=== PATIENT | female | born 1935 | race Caucasian/White ===

== ENCOUNTER 2020-12-04 14:12 | Inpatient (IN) | payer MEDICARE ==
[~2020-12-04] VITALS: Ht 167.6 cm; Wt 78.6 kg
--- NOTE | ~2020-12-04 | EMS ---
[facility] [address] [place] [address] EMS Patient Care Report Name: PETEY VEGA Room: [place] [address] ADM IN [facility]#: [id number] Admission: 12/04/20 Attend Phys: Samy Arias Discharge: Date of : 35 Report #: [id number] THIS REPORT FOR: //name// Report Transmitted: 12/04/2020 17:49 EMS Care Summary [facility] [place] Incident [id number] @ 12/04/2020 13:22 Incident Location [address] [place] [address] Patient Barbie Sanon Female, 85 Years 1935 Patient Address [address] [place] [address] Patient History Anxiety disorder, unspecified,Hypothyroidism, unspecified,Hyperlipidemia,Atrial Fibrillation,Presence of artificial hip joint, Patient Allergies , Patient Medications Fenofibrate, Tamsulosin, Lisinopril, , Xarelto, Senna Lax, Memantine, , Lexapro, Tramadol, Chief Complaint Weakness Disposition Transported No Lights/[place] Dispatch Reason Heart Problems/AICD Transported To [facility] Narrative [facility] DISPATCHED TO [facility] ROOM 106 FOR AN 85 YEAR OLD FEMALE WITH AN ELEVATED HEART RATE.I STARTING LOCATION IS [facility] [address] [place] [address] EMS Patient Care Report Name: PETEY VEGA Room: [address] IN [facility]#: [id number] Admission: 12/04/20 Attend Phys: Samy Arias Discharge: Date of : 35 Report #: [id number] CENTER ED. 319 ARRIVES ON SCENE WITHOUT INCIDENT. PATIENT (BARBIE) FOUND STANDING UPRIGHT IN APARTMENT BATHROOM WITH HER WALKER. FACILITY NURSE IS STANDING BY IN APARTMENT WELL. NURSE STATES THAT BARBIE HAS BEEN COMPLAINING OF "NOT FEELING WELL" FOR MULTIPLE DAYS. ON ASSESSING VITAL SIGNS, NURSING STAFF FOUND BARBIE TO BE HYPERTENSIVE AT 160/94 WITH HEART RATE BETWEEN 158-165 BEATS PER MINUTE. BARBIE MOVED INTO FACILITY MONDAY AFTER BEING DISCHARGED FROM REHAB FACILITY FOLLOWING HIP SURGERY. STAFF HAS ALSO NOTED BILATERAL LOWER EXTREMITY EDEMA. BARBIE'S DRESSING FOR LEFT HEEL SORE WAS CHANGED, BUT AFTER NOTING EDEMA AND ABNORMAL VITALS, STAFF CALLED 911 FOR FURTHER EVALUATION. STAFF NOTIFIED BARBIE'S DAUGHTERS WELL, WHO REQUEST BARBIE BE ASSESSED AT LOCAL ED FOR SYMPTOMS. BARBIE'S ABNORMAL VITAL SIGNS AND POTENTIAL COMPLICATIONS OF SUCH ARE DISCUSSED; BARBIE AGREES TO TRANSPORT TO LOCAL ED FOR FURTHER EVALUATION. DUE TO [facility] EXPERIENCING HIGH VOLUME, BARBIE AGREES TO TRANSPORT TO [facility] ED FOR EXPEDITED EVALUATION AND TREATMENT. BARBIE USES WALKER AND IS ASSISTED TO AMBULATE TO COT WAITING OUTSIDE APARTMENT DOOR. SHE PIVOTS, SITS ON COT IN UPRIGHT SEATED POSITION OF COMFORT WHERE SHE IS SECURED WITH ALL SEAT BELTS. COT TAKEN TO AMBULANCE WHERE IT IS SECURED WITHOUT INCIDENT. IN AMBULANCE, ALL ASSESSMENTS AND TREATMENTS ARE PERFORMED NOTED. TRANSPORT BEGINS NON-EMERGENT TO [facility] ED. EN ROUTE, BARBIE IS continually MONITORED FOR ANY CHANGE IN STATUS TO INCLUDE REASSESSMENT OF VITALS, SECONDARY ASSESSMENT, AND CONTINUED PATIENT INTERVIEW. [place] ARRIVES AT [facility] ED WITHOUT INCIDENT. BARBIE SIGNS NOTICE OF PRIVACY RIGHTS AND A MASK IS PROVIDED TO HER. COT UNLOADED AND TAKEN TO ED 17. BARBIE TRANSFERRED TO ED BED USING DRAW SHEET WITHOUT INCIDENT. VERBAL REPORT GIVEN, AND ED RN SIGNS TRANSFER OF CARE. [place] IS CLEAR AND AVAILABLE. GUI RUBIO, EMT-P. Initial Vitals @13:44SpO2: 98, @13:46SpO2: 97, @14:04SpO2: 97, @13:43 @14:02 @14:05 @13:48P: 150,R: 22,BP: 144/108, @13:57P: 154,R: 22,BP: 133/97, @14:04P: 170,R: 22,BP: 142/108, @13:38P: 170,R: 22,BP: 158/76, @13:48GCS: 15, @13:57GCS: 15, @14:04GCS: 15, @13:38GCS: 15, @14:00Glucose: 99, [place] [address] EMS Patient Care Report Name: PETEY VEGA Room: [place] [address] ADM IN ..#: [id number] Admission: 12/04/20 Attend Phys: Samy Arias Discharge: Date of : 35 Report #: [id number] @13:29MENTAL:SKIN:HEENT:LUNG SOUNDS:ABDOMEN:PELVIS//GI:EXTREMITIES:PULSE:NEURO: Impression Cardiac arrhythmia/dysrhythmia Procedures @14:00 cc () Site: Forearm-LeftResponse: UnchangedSucceeded@13:4312-Lead ECGResponse: UnchangedSucceeded@14:0212-Lead ECGResponse: UnchangedSucceeded@14:053-Lead ECGResponse: UnchangedSucceeded Timeline 13:21,Call Received 13:21,Dispatch Notified 13:21,Psap Call 13:22,Dispatched 13:23,En Route 13:26,On Scene 13:29,At Patient 13:38,BP: 158/76 M,PULSE: 170,RR: 22 R,SPO2: Ox,ETCO2: ,BG: ,PAIN: ,GCS: , 13:38,BP: / M,PULSE: ,RR: R,SPO2: Ox,ETCO2: ,BG: ,PAIN: ,GCS: 15, 13:43,12-Lead ECG,Response: UnchangedSucceeded, 13:43,BP: / M,PULSE: ,RR: R,SPO2: Ox,ETCO2: ,BG: ,PAIN: ,GCS: , 13:44,BP: / M,PULSE: ,RR: R,SPO2: 98 Ox,ETCO2: ,BG: ,PAIN: ,GCS: , 13:46,BP: / M,PULSE: ,RR: R,SPO2: 97 Ox,ETCO2: ,BG: ,PAIN: ,GCS: , 13:48,BP: 144/108 M,PULSE: 150,RR: 22 R,SPO2: Ox,ETCO2: ,BG: ,PAIN: ,GCS: , 13:48,BP: / M,PULSE: ,RR: R,SPO2: Ox,ETCO2: ,BG: ,PAIN: ,GCS: 15, 13:53,Depart Scene 13:57,BP: 133/97 M,PULSE: 154,RR: 22 R,SPO2: Ox,ETCO2: ,BG: ,PAIN: ,GCS: , 13:57,BP: / M,PULSE: ,RR: R,SPO2: Ox,ETCO2: ,BG: ,PAIN: ,GCS: 15, 14:00, cc Site: Forearm-Left,Response: UnchangedSucceeded, 14:00,BP: / M,PULSE: ,RR: R,SPO2: Ox,ETCO2: ,B,PAIN: ,GCS: , 14:02,12-Lead ECG,Response: UnchangedSucceeded, 14:02,BP: / M,PULSE: ,RR: R,SPO2: Ox,ETCO2: ,BG: ,PAIN: ,GCS: , 14:04,BP: / M,PULSE: ,RR: R,SPO2: 97 Ox,ETCO2: ,BG: ,PAIN: ,GCS: , 14:04,BP: 142/108 M,PULSE: 170,RR: 22 R,SPO2: Ox,ETCO2: ,BG: ,PAIN: ,GCS: , 14:04,BP: / M,PULSE: ,RR: R,SPO2: Ox,ETCO2: ,BG: ,PAIN: ,GCS: 15, 14:05,3-Lead ECG,Response: UnchangedSucceeded, 14:05,BP: / M,PULSE: ,RR: R,SPO2: Ox,ETCO2: ,BG: ,PAIN: ,GCS: , 14:07,At Destination 14:21,Call Closed Disclaimer v1.1 Copyright 2020 [employer] This EMS Care Summary contains data elements from the applicable legal record (which may be displayed differently). It is designed [place] [address] EMS Patient Care Report Name: PETEY VEGA Room: [address] IN M.R.#: [id number] Admission: 12/04/20 Attend Phys: Samy Arias Discharge: Date of : 35 Report #: [id number] information for the following purposes: continuity of care, clinical quality, and state data reporting. The complete legal record is available to ED staff and administrators of the receiving hospital in [facility]'s Patient Tracker. All data is provided "as is."
[2020-12-04 14:57] LABS: ABSOLUTE EOSINOPHILS 0.1 thou/uL (0.0-0.7); ABSOLUTE MONOCYTES 0.9 thou/uL (0.0-1.2); ABSOLUTE NEUTROPHILS 5.3 thou/uL (1.6-8.1); BASOPHILS 0.6 %; EOSINOPHILS 1.3 %; HEMATOCRIT 36.9 % (37.0-47.0); MCH 29.2 pg (26.0-34.0); MCHC 32.6 g/dL (28.0-37.0); MCV 89.5 fL (80.0-100.0); MONOCYTES 11.8 %; MPV 7.5 fl. (7.2-11.1); NUCLEATED RBCS 0 /100WBC; PLATELET COUNT* 277 thou/uL (150-400); POLYS 72.3 %; RBC 4.12 mil/uL (4.20-5.00); RDW-CV 14.9 % (10.5-14.5); WBC 7.3 thou/uL (4.0-11.0)
[2020-12-04 15:01] LABS: CALCIUM 8.4 mg/dL (8.5-10.1); CREATININE 0.7 mg/dL (0.6-1.3); POTASSIUM 3.1 mmol/L (3.5-5.1)
[2020-12-04 15:16] LABS: ALBUMIN 3.3 g/dL (3.4-5.0); CK-MB MASS 2.5 ng/mL (<0.5-3.6); MAGNESIUM 1.4 mg/dL (1.8-2.4); TOTAL BILIRUBIN 0.8 mg/dL (<0.1-1.0); TOTAL PROTEIN 6.6 g/dL (6.4-8.2)
--- NOTE | 2020-12-04 16:06 | EKG ---
[place] [address] ELECTROCARDIOGRAM REPORT Name: PETEY VEGA Room: [facility]#: [id number] Admission: 12/04/20 Attend Phys: Discharge: Date of : 35 Date of Service: 12/04/20 1418 Report #: [id number] THIS REPORT FOR: //name// [facility] ED Test Date: 2020-12-04 Test Time: 14:18:00 Pat Name: PETEY VEGA Department: Room: Gender: Fine Craft Artist: : 1935 Requested By: Dmitriy Sweet Order Number: [id number] MD: Gabriele Galindo Measurements Intervals [place] Rate: 153 P: GA: QRS: 12 QRSD: 88 T: 147 QT: 307 QTc: 490 Interpretive Statements Atrial fibrillation with rapid V-rate Low voltage, extremity leads Repolarization abnormality, prob rate related No previous ECG available for comparison Electronically Signed On 12-04-2020 16:06:07 CDT by Gabriele aGlindo [email or web address] <ELECTRONICALLY SIGNED> By: Gabriele Galindo MD, [facility] 12/04/20 1606 1418 1418 Gabriele Galindo MD, [facility] /EPI
[2020-12-04] MEDS ORDERED: VITAMIN C1000 MG PO (16:47)
[2020-12-04] MEDS ORDERED: TOPROL XL50 MG (16:47)
[2020-12-04] MEDS ORDERED: FLOMAX0.4 MG PO (16:47)
[2020-12-04] MEDS ORDERED: LISINOPRIL20 MG PO (16:47)
[2020-12-04] MEDS ORDERED: FENOFIBRATE134 MG PO (16:47)
[2020-12-04] MEDS ORDERED: XARELTO15 MG PO (16:48)
[2020-12-04] MEDS ORDERED: NAMENDA 5 MG TAB5 M1 PO (16:48)
[2020-12-04] MEDS ORDERED: LEVOTHYROXINE150 MC1 PO (16:48)
[2020-12-04] MEDS ORDERED: SENNA PLUS TAB1 EACH PO (16:48)
[2020-12-04] MEDS ORDERED: CALCIUM + D3 E1 EACH PO (16:49)
[2020-12-04] MEDS ORDERED: APAP650 PO (16:49)
[2020-12-04] MEDS ORDERED: B12 ACTIVE1000 MCG PO (16:49)
[2020-12-04] MEDS ORDERED: LEXAPRO 10 MG T10 M1 PO (16:49)
[2020-12-04] MEDS ORDERED: MIRALAX119 GM PO (16:50)
[2020-12-04] MEDS ORDERED: TRAMADOL 50 MG50 MG PO (16:50)
[2020-12-04] MEDS ORDERED: MILK OF MA400 MG/5 M PO (16:50)
[2020-12-04 19:23] VITALS: BP 131/70
[2020-12-05] VITALS: BP 129/75
[2020-12-05 05:00] VITALS: BP 135/75
--- NOTE | 2020-12-05 05:32 | NUR ---
PT HAS DEMENTIA, FORGETFUL, POOR HISTORIAN FOR ADMIT. SHE HAS BILATERAL LOWER EXTREMITY EDEMA THAT IS WRAPPED WITH TUBI SAFETY SCIENTIST AND HER LEFT FOREARM WRAPPED WITH OLIVIA BANDAGE FOR A TEAR. SHE DOES NOT UNDERSTAND WHY SHE IS HERE. HEPARIN DRIP AT 5ML/HR, AFIB ON MONITOR. VANCOMYCIN ORDER FOR 0500 CALL SPECIALIST NOTIFIED AT 0511 TO PREPARE, WILL HANG WHEN AVAILABLE. SHE IS ALERT 2-3, UP WITH ASSISTANCE TO BEDSIDE COMMODE. AM LABS, MONITOR, RECEIVED ALL MEDS, FLUIDS DISCONNECTED DUE TO HER SOB AND WHEEZING AND FLUID OVERLOAD. WILL CONTINUE TO MONITOR
[2020-12-05 08:00] VITALS: BP 130/79
[2020-12-05 09:58] LABS: ABSOLUTE EOSINOPHILS 0.1 thou/uL (0.0-0.7); ABSOLUTE LYMPHOCYTES 1.1 thou/uL (0.8-5.3); ABSOLUTE MONOCYTES 0.6 thou/uL (0.0-1.2); ABSOLUTE NEUTROPHILS 4.1 thou/uL (1.6-8.1); BASOPHILS 0.6 %; EOSINOPHILS 1.8 %; HEMATOCRIT 39.3 % (37.0-47.0); HEMOGLOBIN 12.3 gm/dL (12.0-15.0); LYMPHOCYTES 17.9 %; MCH 29.6 pg (26.0-34.0); MCHC 31.2 g/dL (28.0-37.0); MONOCYTES 10.7 %; MPV 7.5 fl. (7.2-11.1); NUCLEATED RBCS 0 /100WBC; PLATELET COUNT* 217 thou/uL (150-400); RBC 4.15 mil/uL (4.20-5.00); RDW-CV 15.9 % (10.5-14.5)
[2020-12-05 10:09] LABS: MCV 94.8 fL (80.0-100.0)
[2020-12-05 10:16] LABS: CALCIUM 8.6 mg/dL (8.5-10.1); CREATININE 0.7 mg/dL (0.6-1.3); MAGNESIUM 1.5 mg/dL (1.8-2.4); POTASSIUM 3.4 mmol/L (3.5-5.1)
[2020-12-05 13:54] VITALS: BP 134/92
[2020-12-05 16:39] VITALS: BP 128/97
--- NOTE | 2020-12-05 20:37 | NUR ---
I ASSUMED CARE OF THE PATIENT AT 0700. SHE IS ALERT AND ORIENTED X2. BED IS IN THE LOW LOCKED POSITION AND CALL LIGHT IS IN REACH. HOURLY ROUNDING IS COMPLETED AND PATIENT NEEDS ARE MET. PAIN IS DENIED. PATIENT WENT FOR VQ SCAN AND NEW IV WAS PLACED. CONTACT SHOULD BE FOLLOWS: 1) EUSEBIO [phone] 2) MINA [phone] AND 3) PHILL [phone]. MAG AND POTASSIUM WERE BOTH REPLACED. SHE IS MONITORED A.FIB FOR THE MAJORITY OF THE SHIFT AND WAS SWITCHED TO PO CARDIAC MEDS. BLOOD GLUCOSE IS MONITORED. WILL CONTINUE TO MONITOR. TUBI [employer]'S ELECTRONIC WARFARE OFFICER IN PLACE.
[2020-12-06] VITALS: BP 142/82
[2020-12-06 04:00] VITALS: BP 137/80
[2020-12-06 04:11] LABS: HEMOGLOBIN 11.5 gm/dL (12.0-15.0); MCH 29.6 pg (26.0-34.0); MCHC 32.8 g/dL (28.0-37.0); MCV 90.4 fL (80.0-100.0); MPV 7.4 fl. (7.2-11.1); RBC 3.87 mil/uL (4.20-5.00); RDW-CV 14.8 % (10.5-14.5); WBC 6.1 thou/uL (4.0-11.0)
[2020-12-06 04:25] LABS: ALBUMIN 2.9 g/dL (3.4-5.0); CALCIUM 8.4 mg/dL (8.5-10.1); CREATININE 0.7 mg/dL (0.6-1.3); MAGNESIUM 1.4 mg/dL (1.8-2.4); POTASSIUM 3.1 mmol/L (3.5-5.1); TOTAL BILIRUBIN 0.8 mg/dL (<0.1-1.0); TOTAL PROTEIN 6.1 g/dL (6.4-8.2)
[2020-12-06 08:00] VITALS: BP 130/82
--- NOTE | 2020-12-06 11:53 | CON ---
[address] [address] CONSULTATION Name: PETEY VEGA Room: [address] IN ..#: [id number] Admission: 12/04/20 Attend Phys: Samy Arias Discharge: Date of : 35 Report #: [id number] THIS REPORT FOR: cc: Isma Trevino MD, Lin W. MD Liston, Michael J. MD [facility] ~ DOC #: [id number] cc: MD Kan Burrell MD DATE OF CONSULTATION: 12/05/2020 INDICATION: Atrial fibrillation with rapid ventricular response rate. HISTORY OF PRESENT ILLNESS: The patient is a very pleasant 85-year-old white female who was in assisted care when she complained of not feeling well. She was noted to have a rapid heart rate with rates between 150 and 170. She was found to be in atrial fibrillation with a rapid ventricular response rate. She was transferred to the hospital for further treatment. The patient has a history of atrial fibrillation that had been previously described as paroxysmal. She has not seen Cardiology since 2019. At her last visit, her rhythm was described as irregularly irregular. She has been chronically anticoagulated with Xarelto and having no bleeding problems. At admission, her primary complaint was fatigue. She was denying any chest pain or shortness of breath. She is without other cardiac complaint. PAST MEDICAL HISTORY: 1. Atrial fibrillation. 2. Hyperlipidemia. 3. Hypertension. 4. Hypothyroidism. 5. Dementia. FAMILY HISTORY: Noncontributory. SOCIAL HISTORY: The patient is a lifelong nonsmoker. She does not drink alcohol. She resides in assisted care. ALLERGIES: ATORVASTATIN, CEPHALEXIN, GUAIFENESIN, SERTRALINE, SIMVASTATIN. HOME MEDICATIONS: Vitamin C 1000 mg daily, fenofibrate 134 mg daily, Flomax 0.4 mg daily, lisinopril 20 mg daily, metoprolol succinate 50 mg b.i.d., Xarelto 15 mg with dinner, Senna Plus 2 tablets at bedtime, Namenda 5 mg daily, levothyroxine 150 mcg daily, calcium with D supplement 1 tablet daily, Lexapro 10 mg daily, B12 of 1000 mcg daily, Tylenol 650 mg q. 8 hours, tramadol [address] [place] [address] CONSULTATION Name: PETEY VEGA Room: [address]#: [id number] Admission: 12/04/20 Attend Phys: Samy Arias Discharge: Date of : 35 Report #: [id number] b.i.d. p.r.n., magnesium hydroxide 30 mL p.o. at bedtime p.r.n., MiraLax 17 g p.o. daily. REVIEW OF SYSTEMS: A 14-point review of systems is positive for weight loss, dizziness, anxiety, depression and joint pain, otherwise unremarkable. PHYSICAL EXAMINATION: VITAL SIGNS: Stable. Blood pressure 134/92, pulse presently in the 80s and irregular. GENERAL: This is a pleasant elderly female, in no distress. Mood and affect appropriate. HEENT: Normocephalic, atraumatic. Extraocular muscles intact. Mucous membranes are moist. The patient is wearing glasses. NECK: Shows no jugular venous distention. CHEST: Reveals clear lung lopez without wheezes or rales. HEART: Reveals an irregularly irregular rhythm without gallop or murmur. ABDOMEN: Reveals normal bowel sounds. EXTREMITIES: Shows trace ankle and lower tibial edema. SKIN: Dry. A 12-lead EKG shows atrial fibrillation with rapid ventricular response rate. There are no acute ST or T-wave abnormalities. No pathologic Q-waves noted. LABORATORY DATA: Reviewed. Sodium 142, potassium 3.4, chloride 107, bicarbonate 29, BUN 12, creatinine 0.7, serum glucose 105. LFTs within normal limits. Troponin less than 0.06 on 3 separate occasions. NT-proBNP is 6547. White blood count 6.0, hemoglobin 12.3, platelet count 217,000. Chest x-ray shows borderline cardiomegaly and mild pulmonary vascular congestion. IMPRESSION AND RECOMMENDATION: 1. Atrial fibrillation with rapid ventricular response rate. I suspect this is chronic. She has had a nice response to IV diltiazem. We will transition to oral medications and follow. She is chronically anticoagulated with Xarelto, which we will continue. I do not see any purpose to attempt rhythm control at this time. Echocardiogram ordered and pending. 2. Hypertension. Blood pressure appears to be adequately controlled on current regimen. 3. Dyslipidemia. The patient is statin intolerant. No indication for lipid lowering at this time. 4. Dementia, appears to be moderate. Continue Namenda at current dose. 5. Elevated NT-proBNP with pulmonary vascular congestion and cardiomegaly, consistent with acute on chronic heart failure. We will obtain echocardiogram [facility] [address] [place] [address] CONSULTATION Name: PETEY VEGA Room: [address] ADM IN M.R.#: [id number] Admission: 12/04/20 Attend Phys: Samy Arias Discharge: Date of : 35 Report #: [id number] for further definition and evaluation. IV Lasix today with followup labs. MD GONZÁLEZ Ramos/ISMA <ELECTRONICALLY SIGNED> By: Kan Ridley MD, FACC 12/06/20 1153 1353 19[facility] Centermaribel Ridley MD, FAC /nt
[2020-12-06 12:00] VITALS: BP 105/70
[2020-12-06 16:00] VITALS: BP 143/80
[2020-12-06 20:00] VITALS: BP 143/89
[2020-12-07] VITALS: BP 132/78
--- NOTE | 2020-12-07 00:07 | NUR ---
ASSUMED CARE OF PT AT 1900. PT IS ALERT AND ORIENTED. VSS. PERRLA. NO COMPLAINTS OF PAIN. PT IS IN A FIB ON THE TELEMETRY. PT IS RESTING COMFORTABLY IN BED. RESPIRATIONS ARE EVEN AND NONLABORED. WILL CONTINUE TO MONITOR PT.
[2020-12-07 04:00] VITALS: BP 133/98
[2020-12-07 10:40] LABS: CREATININE 0.8 mg/dL (0.6-1.3); POTASSIUM 3.6 mmol/L (3.5-5.1)
[2020-12-07 11:17] VITALS: BP 141/88
--- NOTE | 2020-12-07 14:24 | NUR ---
Nutrition: Pt admitted with afib RVR. H/o HTN, dementia. Pt has healing wound on leg. BLE edema. Albumin 2.9. 2gm Na diet. She is eating well. Wt: 173#. She stated she is feeling well. Encouraged her to continue eating well and hydrate. Low nutrition risk.
--- NOTE | 2020-12-07 14:45 | NUR ---
Pt is A&O. Resides at [facility]. Pt reports being independent. Uses a walker for mobility. Hx of HH and SNF. Per charting, Pt may be confused, CM left VM for Pt's family, to confirm assessment, await call back. Anticipate dc tomorrow. CM following
[2020-12-07 16:37] VITALS: BP 129/86
[2020-12-07 19:35] VITALS: BP 142/97
--- NOTE | 2020-12-08 00:22 | NUR ---
ASSUMED CARE OF PT AT 1900. PT IS ALERT AND ORIENTED TO PLACE AND TIME. CONFUSED TO SITUATION. CONFUSION GETS WORSE AT NIGHT. PT IS A FIB ON THE TELEMETRY. PT IS RESTING COMFORTABLY IN BED. RESPIRATIONS ARE EVEN AND NONLABORED. WILL CONTINUE TO MONITOR PT.
[2020-12-08 00:51] VITALS: BP 129/87
[2020-12-08 04:43] VITALS: BP 149/85
[2020-12-08 05:49] LABS: HEMATOCRIT 36.4 % (37.0-47.0); MCH 29.1 pg (26.0-34.0); MCHC 32.9 g/dL (28.0-37.0); MCV 88.5 fL (80.0-100.0); MPV 7.7 fl. (7.2-11.1); RBC 4.11 mil/uL (4.20-5.00); WBC 6.4 thou/uL (4.0-11.0)
[2020-12-08 06:16] LABS: ALBUMIN 3.1 g/dL (3.4-5.0); CALCIUM 8.8 mg/dL (8.5-10.1); CREATININE 0.7 mg/dL (0.6-1.3); MAGNESIUM 1.5 mg/dL (1.8-2.4); POTASSIUM 3.3 mmol/L (3.5-5.1); TOTAL BILIRUBIN 0.6 mg/dL (<0.1-1.0); TOTAL PROTEIN 6.1 g/dL (6.4-8.2)
[2020-12-08 08:05] VITALS: BP 143/87
[2020-12-08] MEDS ORDERED: TOPROL XL100 MG PO (08:41)
[2020-12-08] MEDS ORDERED: CARDIZEM CD120 MG PO (08:41)
[2020-12-08] MEDS ORDERED: LEVOFLOXACIN500 MG PO (08:41)
[2020-12-08] MEDS ORDERED: LASIX 40 MG TAB40 MG PO (08:42)
--- NOTE | 2020-12-08 10:26 | NUR ---
WOUND NURSE: PATIENT SEEN TO ADDRESS WOUND ON LEFT HEEL. MEASURES 0.7 X 0.8 X 0.1 CM. PRESENTS WITH PARTIAL THICKNESS TISSUE LOSS CONTAINING RED, NONGRANULATING TISSUE IN THE WOUND BED. SMALL AMOUNT OF SEROUSANGUINOUS DRANAGE FROM WOUND. CLEANSED WITH SOAP AND WATER, RINSED, THEN PATTED DRY. APPLIED SKIN PREP TO PERIWOUND TISSUE. APPLIED AQUACEL AG UNDER BORDERED FOAM TO WOUND. RECOMMEND 3X/WEEK DRESSING CHANGES. APPLIED SINGLE LAYER SIZE E TUBIGRIPS TO BLE. GIRTH MEASUREMENTS TO BLE FOLLOWS: L/R: FOREFOOT: 22/23.5 CM; ANKLE: 25.5/24.5 CM; CALF: 40.5/37.0 CM. TOES WARM AND PINK, CAPILLARY REFILL < 3 SECONDS, PEDAL PULSES PALPABLE. INSTRUCTED ON MEASURES TO PROMOTE HEALING WITH GOOD UNDERSTANDING ACHIEVED.
--- NOTE | 2020-12-08 13:09 | 2DMMODE ---
[place] [address] 2 D/M-MODE ECHOCARDIOGRAM Name: PETEY VEGA Room: [address] IN [facility]#: [id number] Admission: 12/04/20 Attend Phys: Gab Gallegos Discharge: Date of : 35 Date of Service: 12/07/20 1252 Report #: [id number] THIS REPORT FOR: cc: Angelica Trevino MD, Lin W. MD Holkins, John M. MD [facility] ~ APPROVED REPORT Study performed: 12/07/2020 10:46:54 EXAM: Comprehensive 2D, Doppler, and color-flow Echocardiogram Patient Location: In-Patient Room #: [facility] Status: routine BSA: 1.89 HR: 95 bpm BP: 133/98 mmHg Rhythm: Atrial Fibrillation Other Information Study Quality: Good Indications Atrial Fibrillation 2D Dimensions IVSd: 8.30 (7-11mm) LVOT Diam: 20.89 (18-24mm) LVDd: 47.10 mm PWd: 6.79 (7-11mm) Ascending Ao: 29.98 (22-36mm) LVDs: 38.47 (25-40mm) Aortic Root: 31.09 mm Volumes Left Atrial Volume (Systole) LA ESV Index: 52.60 mL/m2 Aortic Valve AoV Peak Alexis.: 2.21 m/s AO Peak Gr.: 19.47 mmHg LVOT Max P.62 mmHg AO Mean Gr.: 12.73 mmHg LVOT Mean P.88 mmHg LVOT Max V: 0.64 m/s AO V2 VTI: 37.45 cm LVOT Mean V: 0.44 m/s FLAVIA (VTI): 1.11 cm2 LVOT V1 VTI: 12.09 cm AI Blount: 2.54 m/s2 [place] [address] 2 D/M-MODE ECHOCARDIOGRAM Name: PETEY VEGA Room: [address] IN [facility].#: [id number] Admission: 12/04/20 Attend Phys: Gab Gallegos Discharge: Date of : 35 Date of Service: 12/07/20 1252 Report #: [id number] AI PHT: 542.80 ms TDI Lateral E' Alexis.: 0.00 m/s Pulmonary Valve PV Peak Alexis.: 0.90 m/s PV Peak Gr.: 3.27 mmHg Tricuspid Valve RAP Estimate: 5.00 mmHg TR Peak Gr.: 32.25 mmHg RVSP: 37.00 mmHg PA Pressure: 37.00 mmHg Left Ventricle The left ventricle is normal size. There is normal LV segmental wall motion. There is normal left ventricular wall thickness. Left ventricular systolic function is normal. LVEF is 55%. This study is not technically sufficient to allow evaluation of the LV diastolic function due to atrial fibrillation. Right Ventricle The right ventricle is normal size. The right ventricular systolic function is normal. Atria Left atrium is moderately dilated. Right atrium is moderately dilated. Aortic Valve Severe aortic valve sclerosis. Mild aortic regurgitation. Mild to moderate aortic stenosis. Mitral Valve There is mitral annular calcification. There is no mitral valve regurgitation noted. No evidence of mitral valve stenosis. Tricuspid Valve The tricuspid valve is normal in structure. Mild tricuspid regurgitation. Mild pulmonary hypertension. Pulmonic Valve The pulmonary valve is normal in structure. There is no pulmonic valvular regurgitation. Great Vessels The aortic root is normal in size. IVC [place] [address] 2 D/M-MODE ECHOCARDIOGRAM Name: PETEY VEGA Room: [address] IN [facility]#: [id number] Admission: 12/04/20 Attend Phys: Gab Gallegos Discharge: Date of : 35 Date of Service: 12/07/20 1252 Report #: [id number] collapses >50% with inspiration. Pericardium There is no pericardial effusion. Left pleural effusion. <Conclusion> The left ventricle is normal size. There is normal left ventricular wall thickness. Left ventricular systolic function is normal. LVEF is 55%. This study is not technically sufficient to allow evaluation of the LV diastolic function due to atrial fibrillation. The right ventricle is normal size. Left atrium is moderately dilated. Right atrium is moderately dilated. Severe aortic valve sclerosis. Mild aortic regurgitation. Mild to moderate aortic stenosis. There is mitral annular calcification. There is no mitral valve regurgitation noted. No evidence of mitral valve stenosis. The tricuspid valve is normal in structure. Mild tricuspid regurgitation. Mild pulmonary hypertension. IVC is normal in size and collapses >50% with inspiration. There is no pericardial effusion. There is normal LV segmental wall motion. Left pleural effusion. <ELECTRONICALLY SIGNED> By: Josue Renteria MD, FACC 12/07/20 1252 1252 125 Josue Renteria MD, FACC /INF
[2020-12-08 13:23] VITALS: BP 143/87
--- NOTE | 2020-12-08 13:36 | NUR ---
Pt discharging to home today, updated dtr, [facility] to provide transportation. [facility] inhome caregivers to meet Pt at home at 4pm. Faxed HH orders to [facility].
[2020-12-08 17:01] VITALS: BP 143/87
== END 2020-12-08 17:35 | disposition home health service (06) | DRG 177 ==
LOC: M.ERS 14:12 → M.2W 16:42 → M.TBA-ER 16:42 → M.2W 19:42
PROVIDERS: Emergency Medicine; Internal Medicine; ADMIT Internal Medicine; ATTEND Internal Medicine
DX: J15.6 Pneumonia due to other Gram-negative bacteria (principal); I50.33 Acute on chronic diastolic (congestive) heart failure; I48.20 Chronic atrial fibrillation, unspecified; I11.0 Hypertensive heart disease with heart failure; Z20.822 Contact with and (suspected) exposure to COVID-19; F03.90 Unspecified dementia, unspecified severity, without behavioral disturbance, psychotic disturbance, mood disturbance, and anxiety; E03.9 Hypothyroidism, unspecified; E78.5 Hyperlipidemia, unspecified; E83.42 Hypomagnesemia; E87.6 Hypokalemia; Z88.8 Allergy status to other drugs, medicaments and biological substances; Z79.899 Other long term (current) drug therapy

== ENCOUNTER 2021-06-22 04:20 | Emergency (ER) | payer MEDICARE ==
[~2021-06-22] VITALS: Ht 167.6 cm; Wt 67.1 kg
--- NOTE | ~2021-06-22 | EMS ---
[address] [address] EMS Patient Care Report Name: PETEY VEGA Room: [facility] Paulette#: [id number] Admission: 06/22/21 Attend Phys: Discharge: 06/22/21 Date of : 35 Report #: [id number] THIS REPORT FOR: //name// Report Transmitted: 06/22/2021 12:15 EMS Care Summary [facility] Incident [id number] @ 06/22/2021 03:06 Incident Location [address] [place] [address] Patient PETEY VEGA Female, 85 Years 1935 Patient Address [address] [place] [address] Patient History Dementia,Hypertension (HTN),Hyperlipidemia,Gastro-Esophageal Reflux Disease (GERD),Anxiety Disorder (Panic Attacks),Anxiety,Atrial Fibrillation,Hypothyroidism, Patient Allergies Cephalexin,Guaifenesin,Zoloft,Zocor,Lipitor, Patient Medications Furosemide, Levothyroxine, Prednisone, Chief Complaint (L) hip pain- non traumatic Disposition Transported No Lights/[facility] Reason No Other Appropriate Choice Transported To [address] [address] EMS Patient Care Report Name: PETEY VEGA Room: [facility]#: [id number] Admission: 06/22/21 Attend Phys: Discharge: 06/22/21 Date of : 35 Report #: [id number] Dispatched for a person with intractable (L) hip pain. Upon med 1 arrival, access was not granted until maintenance unlocked the door. The patient was located in her room, with a complaints of (L) hip pain. The patients physician was notified at 19:00 on 06/21/20. The patient was placed on Tramadol and prednisone, with no pain relief. The patient showed increased swelling in the (L) lower extremity and was unable to bare weight on (L) leg. The (L) lower foot had a good pulse, motor and sensation. The patient was assisted to the cot and secured with safety straps. The patients DPOA wanted the patient to be transported to [facility]. [place] was closed to all ambulances. A new destination was determined by her DPOA, with [facility] as her choice. Patient report was called to [facility] with patient acceptance. The patients vitals were monitored and a full assessment was preformed with no finds of shortening or rotation in (L) lower extremity. The patient was able to flex and point the (L) foot without pain or restrictions. The patient experienced pain when pressure was applied to (L) heel. The patient rated her pain from a 4-7/ 10. Airway- patent; self maintained. Breathing- regular with good rate and quality; without difficulty. Circulation/Skin- good pulse, motor, and sensation in (L) foot. No abrasions, bruising, shortening or rotation in (L) lower extremity. Mental Status- dementia and confusion normal for patient. The patients vitals were monitored while en route to the hospital. The patient verbalized that her pain had decreased. The patient was left in room # 3 with ED staff. Initial Vitals @03:37P: 72,R: 16,BP: 116/80,Pain: 7/10,GCS: 15,SpO2: 97,Revised Trauma: 12, @03:50P: 71,R: 16,BP: 116/68,GCS: 15,Glucose: 180,SpO2: 97,Revised Trauma: 12, @04:18P: 70,R: 16,BP: 115/68,GCS: 15,SpO2: 97,Revised Trauma: 12, @04:11P: 72,R: 16,BP: 114/68,Pain: 6/10,GCS: 15,Temp: 97.1F,SpO2: 96,Revised Trauma: 12, Assessments @03:15MENTAL:Confused,Time Oriented,Person Oriented,SKIN:HEENT:Eyes: Right Pupil: 4-mm,Eyes: Left Pupil: 4-mm,LUNG SOUNDS:ABDOMEN:PELVIS//GI:Tenderness,Pelvis Other,EXTREMITIES:Left Leg: Weakness,Left Leg: Other,PULSE:Radial: 2+ Normal,NEURO:@03:38MENTAL:Person Oriented,Confused,Time Oriented,SKIN:HEENT:Eyes: Left Pupil: 4-mm,Eyes: Right Pupil: 4-mm,LUNG SOUNDS:ABDOMEN:PELVIS//GI:Tenderness,EXTREMITIES:Left Leg: Other,Left Leg: Edema,PULSE:Pedal: 2+ Normal,NEURO: Impression Pain (Non-Traumatic) Procedures @03:15 BLS Assessment Response: [place] [address] EMS Patient Care Report Name: PETEY VEGA Room: [facility]#: [id number] Admission: 06/22/21 Attend Phys: Discharge: 06/22/21 Date of : 35 Report #: [id number] Timeline 03:05,Call Received 03:06,Dispatched 03:08,En Route 03:11,On Scene 03:15,At Patient 03:15,BLS Assessment,Response: Unchanged 03:37,Depart Scene 03:37,BP: 116/80 M,PULSE: 72,RR: 16 R,SPO2: 97 Ox,ETCO2: ,BG: ,PAIN: 7,GCS: 15, 03:50,BP: 116/68 M,PULSE: 71,RR: 16 R,SPO2: 97 Ox,ETCO2: ,B,PAIN: ,GCS: 15, 04:11,BP: 114/68 M,PULSE: 72,RR: 16 R,SPO2: 96 Ox,ETCO2: ,BG: ,PAIN: 6,GCS: 15, 04:15,At Destination 04:18,BP: 115/68 M,PULSE: 70,RR: 16 R,SPO2: 97 Ox,ETCO2: ,BG: ,PAIN: ,GCS: 15, 04:54,Call Closed Disclaimer v1.1 Copyright 2021 [employer] This EMS Care Summary contains data elements from the applicable legal record (which may be displayed differently). It is designed to provide pertinent information for the following purposes: continuity of care, clinical quality, and state data reporting. The complete legal record is available to ED staff and administrators of the receiving hospital in [employer] Patient Tracker. All data is provided "as is."
[~2021-06-22 04:20] MED LIST: APAP650 PO; B12 ACTIVE1000 MCG PO; CALCIUM + D3 E1 EACH PO; CARDIZEM CD120 MG PO; FENOFIBRATE134 MG PO; FLOMAX0.4 MG PO; LASIX 40 MG TAB40 MG PO; LEVOFLOXACIN500 MG PO; LEVOTHYROXINE150 MC1 PO; LEXAPRO 10 MG T10 M1 PO; LISINOPRIL20 MG PO; MILK OF MA400 MG/5 M PO; MIRALAX119 GM PO; NAMENDA 5 MG TAB5 M1 PO; SENNA PLUS TAB1 EACH PO; TOPROL XL100 MG PO; TOPROL XL50 MG; TRAMADOL 50 MG50 MG PO; VITAMIN C1000 MG PO; XARELTO15 MG PO
[2021-06-22] MEDS ORDERED: PREDNISONE 20 M20 MG PO (04:33)
[2021-06-22] MEDS ORDERED: HYDROCODON-ACE1 EAC7 PO (06:38)
[2021-06-22 07:06] VITALS: BP 117/56
== END 2021-06-22 07:07 | disposition home or self-care (01) ==
LOC: M.ERS 04:20
DX: M25.552 Pain in left hip (principal); M25.572 Pain in left ankle and joints of left foot; F03.90 Unspecified dementia, unspecified severity, without behavioral disturbance, psychotic disturbance, mood disturbance, and anxiety; E03.9 Hypothyroidism, unspecified; E78.5 Hyperlipidemia, unspecified; I10 Essential (primary) hypertension; I48.91 Unspecified atrial fibrillation; Z79.899 Other long term (current) drug therapy; Z88.1 Allergy status to other antibiotic agents; Z88.8 Allergy status to other drugs, medicaments and biological substances